=== PATIENT | male | born 1980 | race Hispanic/Latino ===

== ENCOUNTER 2021-06-28 22:22 | Emergency (ER) | payer BC ==
[~2021-06-28] VITALS: Ht 182.9 cm; Wt 99.8 kg
[2021-06-28 22:58] VITALS: BP 109/75
[2021-06-28 23:59] LABS: BASOPHIL % 0.2 % (0.0-0.2); LYMPHOCYTES # 1.55 10^3/uL1 (1.0-4.8); LYMPHOCYTES % 14.7 % (24.0-44.0); MEAN CORP HGB 26.8 pg (26-34); MONOCYTES # 0.3 10^3/uL (0.3-0.8); MONOCYTES % 2.4 % (5.0-12.0); NEUTROPHIL # 8.7 10^3/uL (1.8-7.7); NEUTROPHILS % 82.5 % (41.0-85.0); PLATELET COUNT 168 10^3/uL (150-400); RED CELL DISTRIBUTION WIDTH 12.7 % (11.5-14.5)
[2021-06-29] VITALS: BP 108/71
--- NOTE | 2021-06-29 00:10 | DIREP ---
PROCEDURE:CHEST 1 VIEW COMPARISON:None. INDICATIONS:Dyspnea FINDINGS: LUNGS/PLEURA:Subtle ill-defined opacities within the bilateral hemithoraces would suggest subtle multifocal infectious or inflammatory pneumonitis in the appropriate clinical setting. There is no pleural effusion or pneumothorax. VASCULATURE:Normal. Unremarkable pulmonary vasculature. CARDIAC:Normal. No cardiac silhouette abnormality or cardiomegaly. MEDIASTINUM:Normal. No visible mass or adenopathy. BONES:No acute abnormality. OTHER:Negative. CONCLUSION: 1. Subtle ill-defined opacities within the bilateral hemithoraces would suggest subtle multifocal infectious or inflammatory pneumonitis in the appropriate clinical setting. Dictated by: Felton Lopez M.D. On 06/29/2021 at 00:08 AM
[2021-06-29 00:26] LABS: ALANINE AMINOTRANSFERASE(ML) 62 U/L (12-78); ALKALINE PHOSPHATASE 37 U/L (50-136); ASPARTATE AMINO TRANSFERASE 35 U/L (0-35); CALCIUM 8.1 mg/dL (8.4-10.5); CARBON DIOXIDE 22.2 mmol/L (20.0-32); GLUCOSE 145 mg/dL (70-110)
[2021-06-29 01:00] VITALS: BP 106/65
[2021-06-29] MEDS ORDERED: NS 1000ML 1,000 ML IV STA (01:36)
--- NOTE | 2021-06-29 01:36 | ER.PDOC ---
General Chief Complaint: General Complaint Stated Complaint: COVID SYMPTOMS Time seen by MD: 01:32 Source: patient Exam Limitations: no limitations History of Present Illness Initial Comments Shortness of breath, nausea and body aches for 4 days. No fever or chills. Severity: moderate Prior Episodes/Possible Cause: no prior episodes Associated Symptoms: other (nausea) Allergies: Coded Allergies: No Known Allergies (Unverified , 06/28/21) Past Medical History Medical History: other (throat cancer) Surgical History: no surgical history Family History Significant Family History: no pertinent family hx Social History Alcohol Use: occassionally Drug Use: none Review of Systems Constitutional: no symptoms reported EENTM: no symptoms reported Respiratory: see HPI Cardiovascular: no symptoms reported Gastrointestinal: no symptoms reported Genitourinary: no symptoms reported All Other Systems: Reviewed and Negative Physical Exam General Appearance: No Apparent Distress, WD/WN Neck: Non-Tender, Full Range of Motion, Supple, Normal Inspection Respiratory: chest non-tender, no respiratory distress, crackles Cardiovascular: Normal Peripheral Pulses, Regular Rate, Rhythm, No Edema, No Gallop, No JVD, No Murmur Gastrointestinal: Normal Bowel Sounds, No Organomegaly, No Pulsatile Mass, Non Tender, Soft Extremities: Normal Range of Motion, Non-Tender, Normal Inspection, No Pedal Edema, No Calf Tenderness, Normal Capillary Refill 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 (06/28/21 23:46) Ekg-Routine (06/28/21 23:46) Xr Chest 1v (06/28/21 23:46) Cta Chest (06/29/21 00:56) 0.9 % Sodium Chloride (Ns 1000ml) (06/29/21 01:36) 0.9 % Sodium Chloride (Ns 1000ml) (06/29/21 01:46) Vital Signs Date Time Temp Pulse Resp B/P (MAP) Pulse Ox O2 Delivery O2 Flow Rate FiO2 06/29/21 01:00 97.8 90 16 106/65 (79) 94 Room Air 06/29/21 00:00 97.8 95 16 108/71 (83) 94 Room Air 06/28/21 22:58 97.8 88 16 97 06/28/21 22:58 97.8 88 16 06/28/21 22:58 97.8 88 16 109/75 (86) 97 Room Air Administered Medications Medications (Trade) Dose Ordered Sig/[place] Route PRN Reason Start Time Stop Time Status Last Admin Dose Admin Sodium Chloride 1,000 ml @ 1,200 mls/hr Q50M STAT IV 06/29/21 01:36 06/29/21 02:25 DC 06/29/21 01:48 1,200 MLS/HR Laboratory Tests Test 06/28/21 22:40 06/28/21 23:55 SARS-CoV-2 Antigen (Rapid) NEGATIVE (NEGATIVE) Group A Streptococcus Screen NEGATIVE (NEGATIVE) White Blood Count 10.6 10^3/uL (4.5-11.0) Red Blood Count 5.19 10^6/uL (4.50-5.90) Hemoglobin 13.9 g/dL (13.9-16.3) Hematocrit 41.4 % (37.0-53.0) Mean Corpuscular Volume 79.8 fL (78-100) Mean Corpuscular Hemoglobin 26.8 pg (26-34) Mean Corpuscular Hemoglobin Concent 33.6 g/dL (33-36.5) Red Cell Distribution Width 12.7 % (11.5-14.5) Platelet Count 168 10^3/uL (150-400) Mean Platelet Volume 10.4 fL (7.8-11.0) Neutrophils (%) (Auto) 82.5 % (41.0-85.0) Lymphocytes (%) (Auto) 14.7 % (24.0-44.0) L Monocytes (%) (Auto) 2.4 % (5.0-12.0) L Neutrophils # (Auto) 8.7 10^3/uL (1.8-7.7) H Lymphocytes # (Auto) 1.55 10^3/uL1 (1.0-4.8) Monocytes # (Auto) 0.3 10^3/uL (0.3-0.8) Absolute Immature Granulocyte (auto 0.02 10^3 u/L (0-2) Absolute Eosinophils (auto) 0.0 10^3/uL (0.0-0.2) Immature Granulocytes % 0.20 % (0.00-0.50) Eosinophils % 0.0 % (0.0-5.0) Basophils % 0.2 % (0.0-0.2) Basophils # 0.0 10^3/uL (0.0-0.1) Prothrombin Time 10.6 SEC (9.6-12.0) Prothrombin Time INR (Non-Therap) 1.0 Activated Partial Thromboplast Time 25.7 SEC (24.67-30.72) D-Dimer 0.91 mg/L (0.19-0.49) *H Sodium Level 137 mmol/L (132-145) Potassium Level 3.2 mmol/L (3.6-5.2) L Chloride Level 102.0 mmol/L (96-109) Carbon Dioxide Level 22.2 mmol/L (20.0-32) Anion Gap 16.0 Blood Urea Nitrogen 15 mg/dL (7-18) Creatinine 1.43 mg/dL (0.59-1.40) H Estimated GFR () 66.3 (>/=60) Est GFR (CKD-EPI)(Non-Afr Singaporean) 54.8 (>/=60) BUN/Creatinine Ratio 10.0 Glucose Level 145 mg/dL (70-110) H Calcium Level 8.1 mg/dL (8.4-10.5) L Total Bilirubin 0.7 mg/dL (0.2-1.0) Aspartate Amino Transferase (AST) 35 U/L (0-35) Alanine Aminotransferase (ALT) 62 U/L (12-78) Alkaline Phosphatase 37 U/L (50-136) L Total Creatine Kinase 58 U/L (39-308) Creatine Kinase MB < 0.5 ng/mL (0.5-3.6) L Troponin I < 0.02 ng/mL (0.00-0.05) Pro-B-Type Natriuretic Peptide 112 pg/mL (0-125) Total Protein 7.5 g/dL (6.4-8.2) Albumin 3.1 g/dL (3.4-5.0) L Globulin 4.4 Albumin/Globulin Ratio 0.704 Progress Progress CXR: Subtle ill-defined opacities within the bilateral hemithoraces would suggest subtle multifocal infectious or inflammatory pneumonitis in the appropriate clinical setting. CTA Chest: Poor contrast opacification of the pulmonary arteries limits evaluation for pulmonary embolus. No obvious pulmonary embolus is identified. No aortic aneurysm or dissection. 2. Patchy opacities throughout the bilateral hemithoraces would suggest multifocal infectious or inflammatory pneumonitis. The appearance is fairly typical of COVID-19 pneumonitis. Nonspecific mildly prominent mediastinal lymph nodes are likely reactive. Fast test for Covid is negative but CT classical for Covid pneumonia. Clinically patient has Covid symptoms. He will go home on Z-David and dexamethasone and to self quarantine for 14 days. EKG/XRAY/CT/US EKG: NSR, no ST T wave changes EKG Comments: HR 99, normal P axis ER DEPART Departure Time of Disposition: 02:53 Disposition: 01 HOME / SELF CARE / HOMELESS Impression: Primary Impression: Pneumonia due to COVID-19 virus Condition: Stable Referrals: PCP,UNKNOWN (PCP) PRIMARY CARE PROVIDER Additional Instructions: Z-David Dexamethasone Vitamin C, D and zinc [id number] as directed Self quarantine at home for 14 days Follow-up PCP in 3 to 5 days Return to ED if worsening symptoms or concerns Duration or Time Spent with Pa: 60 min RENATA MURILLO MD Jun 29, 2021 01:36
[2021-06-29] MEDS ORDERED: NS 1000ML 1,000 ML ONE (01:46)
[2021-06-29 02:00] VITALS: BP 112/54
--- NOTE | 2021-06-29 02:39 | DIREP ---
PROCEDURE:CTA CHEST COMPARISON:[facility], CR, XRAY CHEST SINGLE VW, 06/28/2021, 11:36 PM. INDICATIONS:Difficulty breathing TECHNIQUE:Post contrast axial images through the chest with multiplanar MIP/3D reconstructions. FINDINGS: PULMONARY ARTERIES:Poor contrast opacification the pulmonary arteries limits evaluation for pulmonary embolus. No obvious pulmonary embolus is identified. THORACIC AORTA:No aneurysm or dissection. LUNGS:Patchy opacities throughout the bilateral hemithoraces would suggest multifocal infectious or inflammatory pneumonitis. The appearance is fairly typical of COVID-19 pneumonitis. There is no pleural effusion or pneumothorax. CARDIAC:The heart is not enlarged. There is no pericardial effusion. MEDIASTINUM:Nonspecific mildly prominent mediastinal lymph nodes are likely reactive. BONES:Mild degenerative changes of the spine. No acute abnormality. CONCLUSION: 1. Poor contrast opacification of the pulmonary arteries limits evaluation for pulmonary embolus. No obvious pulmonary embolus is identified. No aortic aneurysm or dissection. 2. Patchy opacities throughout the bilateral hemithoraces would suggest multifocal infectious or inflammatory pneumonitis. The appearance is fairly typical of COVID-19 pneumonitis. Nonspecific mildly prominent mediastinal lymph nodes are likely reactive. Dictated by: Felton Lopez M.D. On 06/29/2021 at 02:31 AM
[2021-06-29 02:53] VITALS: BP 112/54
--- NOTE | 2021-06-29 02:56 | NUR ---
IV DC'D TIP INTACT, NO BLEEDING
--- NOTE | 2021-06-29 06:49 | PCM.EKG ---
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
== END 2021-06-29 03:05 | disposition home or self-care (01) ==
LOC: ER 22:22
DX: U07.1 COVID-19 (principal); J12.82 Pneumonia due to coronavirus disease 2019
CPT/HCPCS: 36415; 71045; 71275; 80053; 82550; 82553; 83880; 84484; 85025; 85379; 85610; 85730; 87070; 87426; 87880; 93005; 96360; 99285; J7030; Q9965; 96361